=== PATIENT | male | born 1945 | race Caucasian/White ===

== ENCOUNTER 2019-09-19 07:45 | Day surgery (SDC) | payer MEDICARE, BC ==
[~2019-09-19 07:45] MED LIST: Buffered Lidocaine 1% SYRIN* 1 ML/SYRINGE INTRADERM ONE; Lactated Ringers 1000 ML Bag* 1,000 ML IV SCH
[2019-09-19] MEDS ORDERED: Buffered Lidocaine 1% SYRIN* 1 ML/SYRINGE INTRADERM ONE (08:06)
[2019-09-19] MEDS ORDERED: ceFAZolin 2 GM in NS PREMIX(*) 2 GM/100 ML BAG IVPB ONE (08:06)
[2019-09-19] MEDS ORDERED: Ondansetron INJ* 2 MG/ML VIAL ONE (08:28)
[2019-09-19] MEDS ORDERED: Dexamethasone IV* 4 MG/ML 1 ML (4 MG) ONE (08:28)
[2019-09-19] MEDS ORDERED: Ketorolac INJ* 30 MG/ML 1 ML VIAL ONE (08:28)
[2019-09-19] MEDS ORDERED: Midazolam* 1 MG/ML 2 ML VIAL (2 MG) ONE (08:28)
[2019-09-19] MEDS ORDERED: Rocuronium* 10 MG/ML VIAL ONE (08:28)
[2019-09-19] MEDS ORDERED: Propofol* 10 MG/ML 20 ML BTL ONE (08:28)
[2019-09-19] MEDS ORDERED: fentaNYL* 50 MCG/ML 2 ML VIAL (100 MCG VIAL) ONE ×2 (08:28→11:17)
[2019-09-19] MEDS ORDERED: Heparin VIAL(*) 5000 UNITS/ML VIAL (FIVE THOUSAND) ONE (08:47)
[2019-09-19] MEDS ORDERED: Bupivacaine 0.5% W/EPI SDV* 10 ML VIAL INJ ONE (09:36)
[2019-09-19] MEDS ORDERED: Naloxone* 0.4 MG/ML 1 ML VIAL IV PRN (11:23)
[2019-09-19] MEDS ORDERED: fentaNYL* 50 MCG/ML 2 ML VIAL (100 MCG VIAL) IV PRN (11:23)
[2019-09-19] MEDS ORDERED: Sugammadex * 200 MG/2 ML VIAL IV PUSH ONE (11:42)
--- NOTE | 2019-09-19 12:01 | BRIEFOPN ---
Brief Operative/Procedure Note - Operation Details Pre-Op Diagnosis: left inguinal hernia Post-Op Diagnosis: same (direct and indirect); also, umbilical hernia and intra- abdominal adhesions Procedures: robotic lysis of adhesions; repair Left inguinal hernia with mesh; open primary repair of umbilical hernia Surgeon(s)/Proceduralists: Scot. Assist: GENARO Correa Anesthesia: GET. Fluids: 800 ml RL Estimated Blood Loss: none Findings: as above Specimen(s)/Culture(s) Description: none Complications: none
[2019-09-19 13:38] VITALS: BP 134/79
--- NOTE | 2019-09-20 02:59 | OP ---
CC: Maxime Seth MD * DATE OF OPERATION: 09/19/19 - [facility] DATE OF : 41 SURGEON: Kadeem Ellison MD DITCHING MACHINE ENGINEER: GENARO Rooney ANESTHESIOLOGIST: Kostas Carbajal MD ANESTHESIA: General endotracheal. PRE-OP DIAGNOSIS: Left inguinal hernia. POST-OP DIAGNOSES: Left inguinal hernia and umbilical hernia. OPERATIVE PROCEDURE: Robotic repair of left inguinal hernia with mesh and open primary repair of umbilical hernia. ESTIMATED BLOOD LOSS: Minimal. IV FLUIDS: Crystalloids. SPECIMENS: None. DRAINS: None. COMPLICATIONS: None. COUNT: Instrument, needle, and sponge counts were correct. DESCRIPTION OF PROCEDURE: The patient was brought to the operating room and placed on the table supine. Sequential compression devices were placed on both lower extremities and general anesthesia was administered. He was positioned and padded appropriately, and time-out was performed. He did receive appropriate intravenous antibiotics. Pneumoperitoneum was achieved through a left upper quadrant placement of a Veress needle. The abdomen was entered through the umbilical hernia defect after making a transverse incision supraumbilically. After entering the hernia defects at the umbilicus with the 8 mm trocar, carbon dioxide was further insufflated to a pressure of 12 mmHg. Under direct visualization, 8 mm trocars were placed in the right and left upper quadrants. There were some omental adhesions in the midline. These were taken down sharply using laparoscopic techniques. Subsequently, the robot was docked in the usual fashion with the patient in a slightly Trendelenburg. Lysis of adhesions was performed in the lower right abdomen in order to free omentum and small bowel from the anterior abdominal wall. Subsequently, inspection revealed direct and indirect left inguinal hernias. There was no inguinal hernia on the right. Approximately 8 cm above the inguinal ligament, peritoneal flap was created transversally using sharp dissection and cautery. The dissection proceeded from the medial umbilical ligament out laterally to proximally anterosuperior iliac spine. The preperitoneal dissection proceeded down to the midline to identify the pubic symphysis and direct inguinal hernia was reduced and Geoffrey' s ligament identified. Dissection proceeded laterally preserving the inferior epigastric vessels and subsequently reducing an indirect inguinal hernia preserving the spermatic cord structures. An anatomic Medtronic ProGrip left- sided mesh was used for the repair and this was placed into the preperitoneal space and unfurled to cover the direct, indirect, and femoral spaces. After assuring position of the mesh, the peritoneal flap was closed with a running 3- 0 V-Loc 90 suture. There was small rent in the peritoneum inferior to the closure of the peritoneal flap and this was sewn close with 3-0 Vicryl. Subsequently, the needles were retrieved and the ports were removed and carbon dioxide was released. The umbilical hernia was then repaired in an open fashion. First, the incision was enlarged laterally and the umbilical stalk was dissected from the anterior abdominal wall. The defect of the hernia was approximately 1 cm and it was dissected back to healthy fascia. Fascia was then closed with 0 Ethibond suture in an interrupted fashion. Umbilical stalk was reapproximated to the anterior abdominal wall with 3-0 Vicryl. Skin incisions were closed with 4-0 Monocryl in subcuticular fashion and DermaFlex applied. The patient tolerated the procedure well, was extubated uneventfully, and transferred to recovery in stable condition. [id number]/CPS #: [id number] DARIANA
== END 2019-09-19 13:40 | disposition home or self-care (01) ==
LOC: OR 07:45
PROVIDERS: ATTEND Surgery
DX: K40.90 Unilateral inguinal hernia, without obstruction or gangrene, not specified as recurrent (principal); K42.9 Umbilical hernia without obstruction or gangrene; I25.10 Atherosclerotic heart disease of native coronary artery without angina pectoris; E78.5 Hyperlipidemia, unspecified; M19.90 Unspecified osteoarthritis, unspecified site; I10 Essential (primary) hypertension; Z87.891 Personal history of nicotine dependence; I77.810 Thoracic aortic ectasia
CPT/HCPCS: 49585; 49650; S2900; C1781; J0690; J1100; J1644; J1885; J2250; J2405; J2704; J3010